=== PATIENT | male | born 1950 | race Caucasian/White ===

== ENCOUNTER 2018-05-19 13:27 | Observation (INO) ==
--- NOTE | 2018-05-19 13:39 | Emergency Department Note ---
Disposition Clinical Impression: Elevated troponin, Dyspnea on exertion Disposition: Admitted As Inpatient Condition: Fair Referrals: Kacey Walker MD [Non-Partnered Physician] - Forms: ED Satisfaction Letter Time of Disposition: 15:41 General Adult HPI - General Chief complaint: ED Shortness of Breath/Dyspnea Stated complaint: Dizzy/SOB Time Seen by Provider: 05/19/18 13:37 Source: patient Mode of arrival: ambulatory Nursing Notes Reviewed: Yes Vital Signs Reviewed: Yes - History of Present Illness HPI Narrative: 68 yo male with past medical history of anemia requiring blood transfusions, mechanical heart valve on Coumadin, and hypertension presents to the emergency department with shortness of breath with exertion over the past 3 days and lightheadedness that started today. He states he has had something like this back in January and was found to have bleeding ulcers in his stomach. Dr. Perdue did his endoscopy. He states that he needed blood transfusions at this time and had a scope to take care of the ulcers. He is still taking his Coumadin and labetalol has not noticed dark tarry stools. He states he has not had a bowel movement since Thursday his last bowel movement was normal. He has not been vomiting that he feels nauseous. Denies fever, chills, chest pain, abdominal pain. He states he has some right leg pain with walking but not at rest and he has not noticed any leg swelling. Pain Scale: 0 - Related Data Home Medications Medication Instructions Recorded Confirmed Finasteride [Proscar] 5 mg PO DAILY 01/12/18 01/12/18 Simvastatin [Zocor] 40 mg PO HS 01/12/18 01/12/18 Tamsulosin HCl [Flomax] 0.8 mg PO DAILY 01/12/18 01/12/18 hydroCHLOROthiazide 25 mg PO DAILY 01/12/18 01/12/18 [Hydrochlorothiazide] Previous Rx's Medication Instructions Recorded Lisinopril [Zestril] 5 mg PO DAILY #30 tablet 01/23/18 Loratadine [Claritin] 10 mg PO DAILY #30 tablet 01/23/18 Omeprazole [PriLOSEC] 20 mg PO BIDAC #60 capsule. 01/23/18 Warfarin Sodium [Coumadin] 6 mg PO DAILY #10 tablet 01/23/18 Allergies Allergy/AdvReac Type Severity Reaction Status Date / Time No Known Allergies Allergy Verified 09/10/18 22:34 All systems ED: reviewed and negative except as stated. Review of Systems: As Per HPI Constitutional: Reports: weakness. Denies: fever, chills Cardiovascular: Reports: dyspnea on exertion. Denies: chest pain, palpitations Respiratory: Reports: dyspnea. Denies: cough Gastrointestinal: Denies: abdominal pain, nausea, vomiting, diarrhea Genitourinary: Denies: hematuria Neurological: Denies: headache Past Medical History - Past Medical History Medical history: Reports: COPD, hyperlipidemia, hypertension Surgical history: Reports: heart valve replacement (mechanical aortic valve) Psychiatric history: Reports: no psych history - Social History Smoking Status: Current every day smoker Alcohol use: Reports: none Drug use: Reports: none Physical Exam - General Limitations: no limitations General appearance: alert, in no apparent distress - Head Head exam: atraumatic, normocephalic - Eye Eye exam: Present: normal appearance, PERRL, EOMI - ENT ENT exam: normal exam, mucous membranes moist - Neck Neck exam: Present: normal inspection. Absent: lymphadenopathy - Respiratory Respiratory exam: Present: other (Diminished breath sounds bilaterally). Absent: wheezes - Cardiovascular Cardiovascular exam: Present: regular rate, normal rhythm, systolic murmur - Abdominal Exam Abdominal exam: Present: soft, Non-Tender. Absent: distention, guarding, rebound, rigidity - Extremities Exam Extremities exam: Present: normal inspection, other (Alison's sign negative bilaterally). Absent: tenderness, pedal edema, calf tenderness - Neurological Exam Neurological exam: Present: alert, oriented X3 - Psychiatric Psychiatric exam: Present: normal affect, normal mood - Skin Skin exam: Present: warm, dry, intact Course Vital Signs Temperature 98.5 F 05/19/18 13:30 Pulse Rate 84 05/19/18 13:30 Respiratory Rate 16 05/19/18 13:30 Blood Pressure 124/75 05/19/18 13:30 O2 Sat by Pulse Oximetry 99 05/19/18 13:30 Temperature 98.5 F 05/19/18 13:40 Pulse Rate 84 05/19/18 13:40 Respiratory Rate 16 05/19/18 13:40 Blood Pressure 124/75 05/19/18 13:40 O2 Sat by Pulse Oximetry 99 05/19/18 13:40 Oxygen Delivery Oxygen Delivery Room Air Medical Decision Making - MDM Narrative Medical decision making narrative: This patient presents with dyspnea on exertion for the past 3 days and lightheadedness starting today. We will pursue a cardiac workup on this patient as he has had no infectious symptoms suggestive of pneumonia. We will also determine if patient has recurrent anemia. We will obtain EKG, CBC, BMP, troponin, PT/INR, chest x-ray. 1455 - patient's chest x-ray shows no acute cardiopulmonary process. Hemoglobin and hematocrit are 10/34.1. A critical troponin of 0.05 was reported from lab. 1515 - patient's INR returned at 3.8. He was told for the need for admission for observation and further cardiac workup and he was reluctant to be admitted at first but now agrees. Hospitalist has been paged for admission. 6110 - Dr. Tee has accepted this patient for admission. ASA will also be given to do the patient's elevated troponin. - Medical Records Medical records reviewed: Yes I reviewed the patient's medical records. - Lab Data Lab results reviewed: Yes I reviewed the patient's lab results. Result diagrams: 05/19/18 14:15 05/19/18 14:15 Lab Results 05/19/18 05/19/18 05/19/18 Range/Units 14:15 14:15 14:15 WBC 9.6 (4.3-11.1) K/mcL RBC 4.81 (4.19-5.50) M/mcL Hgb 10.0 L (12.9-16.9) g/dL Hct 34.1 L (37.5-50.1) % MCV 70.9 L (83.0-100.0) fL MCH 20.8 L (28.0-33.3) pg MCHC 29.3 L (31.6-35.5) g/dL RDW 21.3 H (11.5-14.5) % Plt Count 322 (140-400) K/mcL MPV 10.3 (9.4-12.4) fL Immature Gran % 0.4 (0-4) % Seg Neutrophils % 80.2 % Lymphocytes % 10.9 % Monocytes % 6.4 % Eosinophils % 1.5 % Basophils % 0.6 % Neutrophils # 7.7 (1.6-8.9) K/mcL Lymphocytes # 1.1 (0.6-4.6) K/mcL Monocytes # 0.6 (0.0-1.3) K/mcL Eosinophils # 0.1 (0.0-0.6) K/mcL Basophils # 0.1 (0.0-0.2) K/mcL Sodium 137 (136-145) mEq/L Potassium 4.3 (3.5-5.1) mEq/L Chloride 102 (98-107) mEq/L Carbon Dioxide 29 (23-29) mEq/L BUN 22 (8-23) mg/dL Creatinine 1.41 H (0.70-1.30) mg/dL Est GFR ( Amer) > 60 (> 60) Est GFR (Non-Af Amer) 50 L (> 60) BUN/Creatinine Ratio 16 (6-26) Glucose 110 H (70-105) mg/dL Calculated Osmolality 288 (280-300) Calcium 9.4 (8.6-10.3) mg/dL Troponin I 0.05 H* (< 0.04) ng/mL Blood Type B NEGATIVE - Radiology Data Radiology results reviewed: Yes I reviewed the patient's radiology results. - EKG Data EKG #1 EKG attestation: Yes I reviewed and interpreted this EKG. EKG results narrative: EKG obtained at 13:39 on 05/19/2018 Heart rate 75 bpm, IL interval undetermined, QRS duration 121, QTC 434, QTC 485 Atrial flutter with a 4-1 AV block. Right bundle branch block noted. No signs of ST segment elevations or depressions. Unchanged when compared to his previous EKG dated 01/11/2018.
[2018-05-19 14:39] LABS: Basophils # 0.1 K/mcL (0.0-0.2); Basophils % 0.6 %; Eosinophils # 0.1 K/mcL (0.0-0.6); Eosinophils % 1.5 %; Hematocrit 34.1 % (37.5-50.1); Immature Granulocytes % 0.4 % (0-4); Lymphocytes # 1.1 K/mcL (0.6-4.6); Lymphocytes % 10.9 %; Mean Corpuscular HGB Conc 29.3 g/dL (31.6-35.5); Mean Corpuscular Hemoglobin 20.8 pg (28.0-33.3); Mean Corpuscular Volume 70.9 fL (83.0-100.0); Mean Platelet Volume 10.3 fL (9.4-12.4); Monocytes # 0.6 K/mcL (0.0-1.3); Monocytes % 6.4 %; Neutrophils # 7.7 K/mcL (1.6-8.9); Platelet Count 322 K/mcL (140-400); Red Blood Count 4.81 M/mcL (4.19-5.50); Red Cell Distribution Width 21.3 % (11.5-14.5); Segmented Neutrophils % 80.2 %
--- NOTE | 2018-05-19 14:43 | Emergency Department Note ---
Disposition Clinical Impression: Elevated troponin, Shortness of breath Disposition: Admitted As Inpatient Condition: Good Referrals: Kacey Walker MD [Primary Care Provider] - Forms: ED Satisfaction Letter General Adult HPI - General Chief complaint: ED Shortness of Breath/Dyspnea Stated complaint: Dizzy/SOB Time Seen by Provider: 05/19/18 13:37 Source: patient Mode of arrival: ambulatory Limitations: no limitations - History of Present Illness Pain Scale: 0 - Related Data Home Medications Medication Instructions Recorded Confirmed Finasteride [Proscar] 5 mg PO DAILY 01/12/18 01/12/18 Simvastatin [Zocor] 40 mg PO HS 01/12/18 01/12/18 Tamsulosin HCl [Flomax] 0.8 mg PO DAILY 01/12/18 01/12/18 hydroCHLOROthiazide 25 mg PO DAILY 01/12/18 01/12/18 [Hydrochlorothiazide] Previous Rx's Medication Instructions Recorded Lisinopril [Zestril] 5 mg PO DAILY #30 tablet 01/23/18 Loratadine [Claritin] 10 mg PO DAILY #30 tablet 01/23/18 Omeprazole [PriLOSEC] 20 mg PO BIDAC #60 capsule. 01/23/18 Warfarin Sodium [Coumadin] 6 mg PO DAILY #10 tablet 01/23/18 Allergies Allergy/AdvReac Type Severity Reaction Status Date / Time No Known Allergies Allergy Verified 01/11/18 22:34 Constitutional: Reports: weakness. Denies: fever, chills Cardiovascular: Reports: dyspnea on exertion. Denies: chest pain, palpitations Respiratory: Reports: dyspnea. Denies: cough Gastrointestinal: Denies: abdominal pain, nausea, vomiting, diarrhea Genitourinary: Denies: hematuria Neurological: Denies: headache Past Medical History - Past Medical History Medical history: Reports: COPD, hyperlipidemia, hypertension Surgical history: Reports: heart valve replacement (mechanical aortic valve) Psychiatric history: Reports: no psych history - Social History Smoking Status: Current every day smoker Smokeless Tobacco Status: No Alcohol use: Reports: none Drug use: Reports: none Physical Exam - General Limitations: no limitations General appearance: alert, in no apparent distress Course Vital Signs Temperature 98.5 F 05/19/18 13:30 Pulse Rate 84 05/19/18 13:30 Respiratory Rate 16 05/19/18 13:30 Blood Pressure 124/75 05/19/18 13:30 O2 Sat by Pulse Oximetry 99 05/19/18 13:30 Temperature 98.5 F 05/19/18 13:40 Pulse Rate 84 05/19/18 13:40 Respiratory Rate 16 05/19/18 13:40 Blood Pressure 124/75 05/19/18 13:40 O2 Sat by Pulse Oximetry 99 05/19/18 13:40 Oxygen Delivery Oxygen Delivery Room Air Medical Decision Making - MDM Narrative Medical decision making narrative: Slightly elevated troponin 0.05. Aspirin given. Admit for ACS evaluation and observation. Patient's EKG shows evidence of chronic a flutter. - Medical Records Medical records reviewed: Yes I reviewed the patient's medical records. - Lab Data Lab results reviewed: Yes I reviewed the patient's lab results. Result diagrams: 05/19/18 14:15 05/19/18 14:15 Lab Results 05/19/18 05/19/18 05/19/18 Range/Units 14:15 14:15 14:15 WBC 9.6 (4.3-11.1) K/mcL RBC 4.81 (4.19-5.50) M/mcL Hgb 10.0 L (12.9-16.9) g/dL Hct 34.1 L (37.5-50.1) % MCV 70.9 L (83.0-100.0) fL MCH 20.8 L (28.0-33.3) pg MCHC 29.3 L (31.6-35.5) g/dL RDW 21.3 H (11.5-14.5) % Plt Count 322 (140-400) K/mcL MPV 10.3 (9.4-12.4) fL Immature Gran % 0.4 (0-4) % Seg Neutrophils % 80.2 % Lymphocytes % 10.9 % Monocytes % 6.4 % Eosinophils % 1.5 % Basophils % 0.6 % Neutrophils # 7.7 (1.6-8.9) K/mcL Lymphocytes # 1.1 (0.6-4.6) K/mcL Monocytes # 0.6 (0.0-1.3) K/mcL Eosinophils # 0.1 (0.0-0.6) K/mcL Basophils # 0.1 (0.0-0.2) K/mcL PT 42.7 H (9.4-12.1) Seconds INR 3.8 Sodium 137 (136-145) mEq/L Potassium 4.3 (3.5-5.1) mEq/L Chloride 102 (98-107) mEq/L Carbon Dioxide 29 (23-29) mEq/L BUN 22 (8-23) mg/dL Creatinine 1.41 H (0.70-1.30) mg/dL Est GFR ( Amer) > 60 (> 60) Est GFR (Non-Af Amer) 50 L (> 60) BUN/Creatinine Ratio 16 (6-26) Glucose 110 H (70-105) mg/dL Calculated Osmolality 288 (280-300) Calcium 9.4 (8.6-10.3) mg/dL Troponin I 0.05 H* (< 0.04) ng/mL Blood Type Antibody Screen 05/19/18 Range/Units 14:15 WBC (4.3-11.1) K/mcL RBC (4.19-5.50) M/mcL Hgb (12.9-16.9) g/dL Hct (37.5-50.1) % MCV (83.0-100.0) fL MCH (28.0-33.3) pg MCHC (31.6-35.5) g/dL RDW (11.5-14.5) % Plt Count (140-400) K/mcL MPV (9.4-12.4) fL Immature Gran % (0-4) % Seg Neutrophils % % Lymphocytes % % Monocytes % % Eosinophils % % Basophils % % Neutrophils # (1.6-8.9) K/mcL Lymphocytes # (0.6-4.6) K/mcL Monocytes # (0.0-1.3) K/mcL Eosinophils # (0.0-0.6) K/mcL Basophils # (0.0-0.2) K/mcL PT (9.4-12.1) Seconds INR Sodium (136-145) mEq/L Potassium (3.5-5.1) mEq/L Chloride (98-107) mEq/L Carbon Dioxide (23-29) mEq/L BUN (8-23) mg/dL Creatinine (0.70-1.30) mg/dL Est GFR ( Amer) (> 60) Est GFR (Non-Af Amer) (> 60) BUN/Creatinine Ratio (6-26) Glucose (70-105) mg/dL Calculated Osmolality (280-300) Calcium (8.6-10.3) mg/dL Troponin I (< 0.04) ng/mL Blood Type B NEGATIVE Antibody Screen NEGATIVE - Radiology Data Radiology results reviewed: Yes I reviewed the patient's radiology results. Critical Care Time Critical Care Time: No Attestation Statement - Attestation Attestation: I examined this patient and my medical decision-making was reviewed with the Resident Physician. I agree with the documented findings, disposition and treatment plan as described except to the extent set forth below. 68-year-old male presented to the emergency room for dizziness lightheadedness and shortness of breath 3 days. States the last time he had this he had a blee ding gastric ulcer that required an EGD that the surgeon had to repair. He is currently on Coumadin as well as blood pressure medications. He does have a history of a mechanical heart valve. He also has a underlying history of a flutter. We will check screening lab work and cardiac labs. He denies any blood in his stool. Denies any dark tarry stools. No vomiting today. No fevers.
[2018-05-19 14:51] LABS: BUN/Creatinine Ratio 16 (6-26); Blood Urea Nitrogen 22 mg/dL (8-23); Calcium 9.4 mg/dL (8.6-10.3); Carbon Dioxide 29 mEq/L (23-29); Chloride 102 mEq/L (98-107); Glucose 110 mg/dL (70-105); Osmolality,Calculated 288 (280-300); Potassium 4.3 mEq/L (3.5-5.1); Sodium 137 mEq/L (136-145); eGFR For Non-African Americans 50 (> 60)
[2018-05-19 14:52] LABS: INR 3.8; Prothrombin Time 42.7 Seconds (9.4-12.1)
[2018-05-19 14:53] LABS: Troponin I 0.05 ng/mL (< 0.04)
[2018-05-19] MEDS ORDERED: Aspirin 81 MG TAB.CHEW PO ONE (15:12)
[2018-05-19] MEDS ORDERED: Ondansetron 4 MG/2 ML VIAL IVP PRN (15:43)
[2018-05-19] MEDS ORDERED: Naloxone 0.4 MG/ML INJ IVP PRN (15:43)
[2018-05-19] MEDS ORDERED: *HR* HYDROcodone/Acet 5/325 mg TABLET PO PRN (15:43)
[2018-05-19] MEDS ORDERED: Acetaminophen 325 MG TABLET PO PRN (15:43)
[2018-05-19] MEDS ORDERED: Nitroglycerin 0.4 MG TAB.SUBL SL PRN (15:47)
--- NOTE | 2018-05-19 17:04 | Internal Med History&Physical ---
Date of Encounter: 05/19/18 Time of Encounter: 16:59 Internal Medicine - H&P: HPI Chief complaint: Shortness of breath Admitted From: Emergency Dept Plans for Post Hospital Care: Home History of present illness: Mr. Loco is a 68 year old male with a known past medical history of BPH, hypertension, status post mechanical aortic valve replacement who is currently on Coumadin for anticoagulation and chronic tobacco dependence patient presented to ER with shortness of breath, dyspnea and lightheadedness from last 3 days. He denied any active chest pain. Patient had a further work up done in the emergency room. His troponin slightly elevated at 0.05. His EKG did not show any acute ischemic changes. When I examined the patient on the floor he denied any chest pain whatsoever. His shortness of breath also better now. He does have some cough without any expectoration. He does have orthopnea and dyspnea on exertion. Past Med Surg Social Fam HX - Past Medical History Medical history: COPD, hyperlipidemia, hypertension Additional medical history: prior h/o LGI bleed Psychiatric history: no psych history - Past Surgical History Surgical History: heart valve replacement (mechanical aortic valve) Additional surgical history: recent colonsocopy with polypectomy ~ 6 months ago - Social History Smoking Status: Current every day smoker Smokeless Tobacco Status: No Alcohol use: none Drug use: none - Family History Mother Living Status: Hx Family GI Disorders: No Father Living Status: Hx Family GI Disorders: No Internal Medicine - H&P: Meds Finasteride [Proscar] 5 mg PO DAILY 01/12/18 [History] Simvastatin [Zocor] 40 mg PO HS 01/12/18 [History] Tamsulosin HCl [Flomax] 0.8 mg PO DAILY 01/12/18 [History] hydroCHLOROthiazide [Hydrochlorothiazide] 25 mg PO DAILY 01/12/18 [History] Lisinopril [Zestril] 5 mg PO DAILY #30 tablet 01/23/18 [Rx] Loratadine [Claritin] 10 mg PO DAILY #30 tablet 01/23/18 [Rx] Omeprazole [PriLOSEC] 20 mg PO BIDAC #60 capsule. 01/23/18 [Rx] Warfarin Sodium [Coumadin] 6 mg PO DAILY #10 tablet 01/23/18 [Rx] Allergy/AdvReac Type Severity Reaction Status Date / Time No Known Allergies Allergy Verified 01/11/18 22:34 All Systems PM: A 10-system review of systems was performed and is negative for pertinent findings except as documented above in the HPI. Review of systems: All the systems are reviewed everything is benign except the systems and symptoms I mentioned in the history of present illness - Constitutional Vitals: Temp Pulse Resp BP Pulse Ox 98.5 F 69 18 105/83 97 05/19/18 13:40 05/19/18 16:04 05/19/18 16:04 05/19/18 16:04 05/19/18 16:04 General appearance: Present: cooperative, A&O X 3, no acute distress, answers questions appropriately Exam: See below - Head Head exam: Present: atraumatic, normal inspection - Neck Neck exam general surgery: Present: supple - Respiratory Respiratory exam: Present: decreased breath sounds. Absent: rales, respiratory distress, rhonchi, wheezes - Cardiovascular Cardiovascular exam: Present: +S1, +S2, systolic murmur. Absent: tachycardia - GI/Abdominal GI/Abdominal exam: Present: normal bowel sounds, soft. Absent: rebound, rigid, tenderness - Extremities Exam Extremities exam: Present: pedal edema (Trace). Absent: calf tenderness, tenderness - Back Exam Back exam: Absent: CVA tenderness (L), CVA tenderness (R) - Neurological Exam Neurological exam: Present: alert, oriented X3 - Psychiatric Psychiatric exam: Present: normal affect, normal mood - Skin Skin exam: Absent: rash Internal Med - H&P Results - Labs CBC & Chem 7: 05/19/18 14:15 05/19/18 14:15 Labs: Short CBC 05/19/18 Range/Units 14:15 WBC 9.6 (4.3-11.1) K/mcL Hgb 10.0 L (12.9-16.9) g/dL Hct 34.1 L (37.5-50.1) % Plt Count 322 (140-400) K/mcL Neutrophils # 7.7 (1.6-8.9) K/mcL BMP 05/19/18 14:15 Sodium 137 Potassium 4.3 Chloride 102 Carbon Dioxide 29 BUN 22 Creatinine 1.41 H Glucose 110 H Calcium 9.4 Cardiac Enzymes 05/19/18 Range/Units 14:15 Troponin I 0.05 H* (< 0.04) ng/mL - Impressions ITS Impressions Chest X-Ray 05/19/18 13:48 IMPRESSION: No acute cardiopulmonary process. D/ / 05/19/2018 14:04:52 Aftab Kramer MD / julius Interpreting Provider: Aftab Kramer MD - Assessment and plan (1) Dyspnea on exertion Current Visit: Yes Status: Acute Assessment and plan: Place the patient on tele for observation his dyspnea on exertion seems to be multifactorial with possible CHF exacerbation versus mild COPD reviewed her chest x-ray- no vascular congestion, no pleural effusion noticed.. No infiltrates noticed reviewed his EKG showed HR @ 75, No acute ST T changes initial troponin @ 0.05 will trend on trop check 2 D Echo in AM NPO after mid night if he needs any further cardiac testing in AM ASA, Nitro PRN He does look euvolemic May not need any diuretics at this point started Duoneb therapy (2) Elevated troponin Current Visit: Yes Status: Acute (3) H/O mechanical aortic valve replacement Current Visit: No Status: Chronic Assessment and plan: Continue Coumadin INR at therapeutic range (4) HTN (hypertension) Current Visit: No Status: Chronic Assessment and plan: Will resume all home medications Qualifiers: Hypertension type: essential hypertension Qualified Code(s): I10 - Essential (primary) hypertension (5) CKD (chronic kidney disease) stage 3, GFR 30-59 ml/min Current Visit: Yes Status: Acute Assessment and plan: Cr @ 1.4 seems to be at his baseline he does have CKD-3 (6) Tobacco dependence Current Visit: Yes Status: Acute Assessment and plan: Counseled to quit smoking offered nicotine patch - Time Spent With Patient Total time spent is greater than 50% in coordination of care (as documented) at patient's floor/unit and/or counseling patient:
[2018-05-19] MEDS ORDERED: Ipratropium/Albuterol Neb 3 ML IH PRN (17:11)
[2018-05-19] MEDS ORDERED: Warfarin perPT PO PRN (18:00)
[2018-05-19] MEDS ORDERED: Perflutren Lipid Microsphere 1.3 ML in 0.9 % Sodium Chloride 8.7 ML IVP ONE (20:45)
[2018-05-20 05:08] LABS: Hematocrit 30.7 % (37.5-50.1); Mean Corpuscular HGB Conc 29.3 g/dL (31.6-35.5); Mean Corpuscular Hemoglobin 20.9 pg (28.0-33.3); Mean Corpuscular Volume 71.2 fL (83.0-100.0); Mean Platelet Volume 9.8 fL (9.4-12.4); Platelet Count 267 K/mcL (140-400); Red Blood Count 4.31 M/mcL (4.19-5.50); Red Cell Distribution Width 21.3 % (11.5-14.5)
[2018-05-20 05:17] LABS: INR 3.6; Prothrombin Time 40.4 Seconds (9.4-12.1)
[2018-05-20 05:31] LABS: BUN/Creatinine Ratio 16 (6-26); Blood Urea Nitrogen 20 mg/dL (8-23); Carbon Dioxide 29 mEq/L (23-29); Chloride 105 mEq/L (98-107); Chol/HDL Ratio 3.8 (0-4.9); Cholesterol 146 mg/dL (< 200); Glucose 105 mg/dL (70-105); HDL Cholesterol 38 mg/dL (40-59); LDL Cholesterol,Calculated 76 mg/dL (0-99); Magnesium 1.9 mg/dL (1.6-2.6); Osmolality,Calculated 291 (280-300); Potassium 4.2 mEq/L (3.5-5.1); Sodium 139 mEq/L (136-145); Triglycerides 158 mg/dL (< 150); eGFR For Non-African Americans 56 (> 60)
[2018-05-20] MEDS ORDERED: Aspirin Enteric Coated 81 MG Tablet PO SCH (09:00)
--- NOTE | 2018-05-20 09:18 | Electrocardiograph Report ---
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
[2018-05-20] MEDS ORDERED: Furosemide 20 MG/2 ML VIAL IVP ONE (10:45)
--- NOTE | 2018-05-20 12:47 | Electrocardiograph Report ---
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
[2018-05-20 13:12] VITALS: BP 155/99
--- NOTE | 2018-05-20 13:15 | Discharge Summary ---
- NOTES TO OUTPATIENT PROVIDER Notes to Outpatient Provider: Follow with PCP in one week. Follow-up with cardiology and pulmonary in 2 weeks. Please take Lasix isntead of HCTZ for your LE edema and shortness of breath. Orders not resulted at time of discharge: Pending orders 05/21/18 04:00 Prothrombin Time INR [COAG] AM 0400 05/22/18 04:00 Prothrombin Time INR [COAG] AM 0400 Date of Encounter: 05/20/18 Time of Encounter: 13:15 - Discharge Diagnosis (1) Dyspnea on exertion Priority: Primary Status: Acute (2) Acute diastolic CHF (congestive heart failure) Priority: Secondary Status: Acute (3) Elevated troponin Priority: Primary Status: Acute (4) H/O mechanical aortic valve replacement Priority: Secondary Status: Chronic (5) HTN (hypertension) Priority: Secondary Status: Chronic Qualifiers: Hypertension type: essential hypertension Qualified Code(s): I10 - Essential (primary) hypertension (6) CKD (chronic kidney disease) stage 3, GFR 30-59 ml/min Priority: Secondary Status: Acute (7) Tobacco dependence Priority: Secondary Status: Acute (8) Atrial flutter Priority: Secondary Status: Chronic Qualifiers: Atrial flutter type: typical Qualified Code(s): I48.3 - Typical atrial flutter Hospital course: Mr. Loco is a 68 year old male with a known past medical history of BPH, hypertension, status post mechanical aortic valve replacement who is currently on Coumadin for anticoagulation and chronic tobacco dependence patient presented to ER with shortness of breath, dyspnea and lightheadedness from last 3 days. He denied any active chest pain. Patient had a further work up done in the emergency room. His troponin slightly elevated at 0.05. His EKG did not show any acute ischemic changes. Patient was admitted in the hospital and placed on surveillance system monitor. Checked his serial troponin which were slightly elevated at 0.05 and a dynamic. He denied any active chest pain. His symptoms seems to be due to mild acute diastolic CHF exacerbation. His 2 D Echo showed preserved LVEF and mild diastolic dysfunction. So gave him IV Lasix and recommend to use Lasix PO at home. It seems he does have mild COPD too. Recommend to quit smoking and placed him on Albuterol INH. Also suggested to f/u with Pulmonary as an out pt. - Time Spent with Patient Total time spent providing and/or coordinating discharge services: - Discharge Medications Prescriptions: Albuterol Sulfate [Proair Respiclick] 90 mcg IH Q6H PRN #1 aer.[email or web address] PRN Reason: Shortness Of Breath Furosemide [Lasix] 20 mg PO DAILY PRN #30 tablet PRN Reason: Shortness Of Breath Home Medications: Finasteride [Proscar] 5 mg PO DAILY 01/12/18 [History] Simvastatin [Zocor] 40 mg PO HS 01/12/18 [History] Tamsulosin HCl [Flomax] 0.4 mg PO DAILY 01/12/18 [History] Lisinopril [Zestril] 5 mg PO DAILY #30 tablet 01/23/18 [Rx] Warfarin Sodium [Coumadin] 6 mg PO DAILY #10 tablet 01/23/18 [Rx] Aspirin [Lo-Dose Aspirin EC] 81 mg PO DAILY 05/19/18 [History] Esomeprazole Magnesium [Nexium] 40 mg PO DAILY 05/19/18 [History] Multivitamin [Daily Multiple Vitamin] 1 tab PO DAILY 05/19/18 [History] [place]-3/Dha/Epa/Fish Oil [Fish Oil 1,000 mg Softgel] 1 cap PO DAILY 05/19/18 [History] Albuterol Sulfate [Proair Respiclick] 90 mcg IH Q6H PRN #1 aer.pow.ba 05/20/18 [Rx] Furosemide [Lasix] 20 mg PO DAILY #30 tablet 05/20/18 [Rx] Allergies/Adverse Reactions: Allergy/AdvReac Type Severity Reaction Status Date / Time No Known Allergies Allergy Verified 05/19/18 17:52 Date of admission: 05/19/18 15:54 Primary care physician: Kacey Walker MD Consults: 05/20/18 09:58 Consult to Nurse Navigator [CONS] Routine Comment: COPD/CHF - Constitutional Vitals: Temp Pulse Resp BP Pulse Ox 97.7 F 77 17 155/99 96 05/20/18 13:11 05/20/18 13:11 05/20/18 13:11 05/20/18 13:11 05/20/18 13:11 General appearance: Present: cooperative, A&O X 3, no acute distress, answers questions appropriately Exam: Gen: Alert, awake, Oriented to time,place and person Chest: Diminished breath sounds B/L, No wheezing, No crackles, No rales Heart: S1S2+ RRR No murmurs Abd: Soft, NT, BS +, No organomegaly Ext: No edema, pulses are palpable, No calf tenderness Neuro : Benign findings Skin: No rash. - Patient Status Disposition: Home, Self-Care Condition: Good Overall status at discharge: patient is back to baseline - Discharge Instructions Follow Up With: Aftab Roy MD [Partnered Physician] - 06/21/18 9:30 am Constance Carrillo MD [Partnered Physician] - (Your appointment has been requested. Our offices will call you with an appointment time and date.) Kacey Walker MD [Primary Care Provider] - 06/01/18 2:40 pm - Diet and Activity Activity: increase activity as tolerated Diet: low salt diet
--- NOTE | 2018-05-20 15:35 | Electrocardiograph Report ---
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
== END 2018-05-20 14:42 | disposition home or self-care (01) ==
LOC: 3BNU 13:27 → EMEROOARM 13:27 → 3BNU 16:38
PROVIDERS: ADMIT Hospitalist; ATTEND Hospitalist

== ENCOUNTER 2019-04-09 16:34 | Inpatient (IN) ==
[2019-04-09] MEDS ORDERED: Pantoprazole 40 MG VIAL IVP ONE (16:44)
[2019-04-09] MEDS ORDERED: 0.9 % Sodium Chloride 1,000 ML IVC ONE (16:44)
[2019-04-09 17:03] LABS: Basophils # 0.1 K/mcL (0.0-0.2); Basophils % 0.4 %; Eosinophils # 0.2 K/mcL (0.0-0.6); Eosinophils % 1.5 %; Hematocrit 21.5 % (37.5-50.1); Hemoglobin 7.2 g/dL (12.9-16.9); Immature Granulocytes % 1.2 % (0-4); Lymphocytes # 1.8 K/mcL (0.6-4.6); Mean Corpuscular HGB Conc 33.5 g/dL (31.6-35.5); Mean Corpuscular Hemoglobin 29.8 pg (28.0-33.3); Mean Corpuscular Volume 88.8 fL (83.0-100.0); Mean Platelet Volume 10.8 fL (9.4-12.4); Monocytes # 0.9 K/mcL (0.0-1.3); Monocytes % 6.7 %; Neutrophils # 10.5 K/mcL (1.6-8.9); Nucleated Red Blood Cells 0.1 /100 WBC (0); Platelet Count 322 K/mcL (140-400); Red Blood Count 2.42 M/mcL (4.19-5.50); Red Cell Distribution Width 14.3 % (11.5-14.5); Segmented Neutrophils % 77.2 %; White Blood Count 13.6 K/mcL (4.3-11.1)
[2019-04-09 17:09] LABS: INR 3.6; Prothrombin Time 40.5 Seconds (9.4-12.1)
[2019-04-09 17:21] LABS: Alanine Aminotransferase 10 Units/L (7-52); Albumin 3.4 g/dL (3.5-5.7); Albumin/Globulin Ratio 1.2 (1.1-2.2); Alkaline Phosphatase 54 Units/L (34-104); Aspartate Amino Transferase 15 Units/L (13-39); BUN/Creatinine Ratio 41 (6-26); Bilirubin,Total 0.4 mg/dL (0.3-1.0); Blood Urea Nitrogen 47 mg/dL (8-23); Calcium 8.9 mg/dL (8.6-10.3); Carbon Dioxide 27 mEq/L (23-29); Chloride 102 mEq/L (98-107); Globulin 2.9 g/dL (2.4-3.5); Glucose 148 mg/dL (70-105); Osmolality,Calculated 299 (280-300); Potassium 3.8 mEq/L (3.5-5.1); Sodium 137 mEq/L (136-145); Total Protein 6.3 g/dL (6.4-8.9); eGFR For African Americans > 60 (> 60); eGFR For Non-African Americans > 60 (> 60)
[2019-04-09] MEDS ORDERED: 0.9 % Sodium Chloride 250 ML ONE (17:55)
[2019-04-09] MEDS ORDERED: Ondansetron 4 MG/2 ML VIAL IVP PRN (18:07)
[2019-04-09] MEDS ORDERED: Naloxone 0.4 MG/ML INJ IVP PRN (18:07)
[2019-04-09] MEDS: 0.9 % Sodium Chloride 1,000 ML IVC SCH (19:10)
[2019-04-09 23:27] LABS: Hematocrit 19.7 % (37.5-50.1); Hemoglobin 6.2 g/dL (12.9-16.9)
[2019-04-10 00:50] LABS: Hematocrit 18.6 % (37.5-50.1); Mean Corpuscular HGB Conc 32.3 g/dL (31.6-35.5); Mean Corpuscular Hemoglobin 28.6 pg (28.0-33.3); Mean Corpuscular Volume 88.6 fL (83.0-100.0); Mean Platelet Volume 10.3 fL (9.4-12.4); Platelet Count 201 K/mcL (140-400); Red Cell Distribution Width 14.3 % (11.5-14.5); White Blood Count 10.9 K/mcL (4.3-11.1)
[2019-04-10 00:51] LABS: Basophils % 0.3 %; Eosinophils # 0.2 K/mcL (0.0-0.6); Eosinophils % 1.4 %; Hematocrit 18.7 % (37.5-50.1); Hemoglobin 6.1 g/dL (12.9-16.9); Immature Granulocytes % 1.1 % (0-4); Lymphocytes # 1.7 K/mcL (0.6-4.6); Lymphocytes % 15.9 %; Mean Corpuscular HGB Conc 32.6 g/dL (31.6-35.5); Mean Corpuscular Hemoglobin 28.9 pg (28.0-33.3); Mean Corpuscular Volume 88.6 fL (83.0-100.0); Mean Platelet Volume 10.4 fL (9.4-12.4); Monocytes # 0.7 K/mcL (0.0-1.3); Monocytes % 6.8 %; Nucleated Red Blood Cells 0.2 /100 WBC (0); Platelet Count 206 K/mcL (140-400); Red Blood Count 2.11 M/mcL (4.19-5.50); Red Cell Distribution Width 14.2 % (11.5-14.5); Segmented Neutrophils % 74.5 %; White Blood Count 10.7 K/mcL (4.3-11.1)
[2019-04-10] MEDS ORDERED: 0.9 % Sodium Chloride 250 ML ONE ×2 (00:58→08:02)
[2019-04-10 01:08] LABS: INR 2.4; Prothrombin Time 26.8 Seconds (9.4-12.1)
[2019-04-10 01:09] LABS: BUN/Creatinine Ratio 46 (6-26); Blood Urea Nitrogen 44 mg/dL (8-23); Calcium 7.8 mg/dL (8.6-10.3); Carbon Dioxide 25 mEq/L (23-29); Chloride 106 mEq/L (98-107); Glucose 106 mg/dL (70-105); Osmolality,Calculated 296 (280-300); Potassium 3.6 mEq/L (3.5-5.1); Sodium 137 mEq/L (136-145); eGFR For African Americans > 60 (> 60); eGFR For Non-African Americans > 60 (> 60)
[2019-04-10] MEDS: 0.9 % Sodium Chloride 1,000 ML IVC SCH (01:23)
[2019-04-10 07:00] LABS: Hematocrit 21.7 % (37.5-50.1)
[2019-04-10] MEDS: Finasteride 5 MG TABLET PO SCH (08:05)
[2019-04-10] MEDS: Pantoprazole 40 MG VIAL IVP SCH (08:05)
[2019-04-10 17:00] LABS: Hematocrit 25.6 % (37.5-50.1); Hemoglobin 8.5 g/dL (12.9-16.9)
[2019-04-10 17:06] LABS: INR 1.3; Prothrombin Time 15.2 Seconds (9.4-12.1)
[2019-04-10 23:17] LABS: Hematocrit 24.7 % (37.5-50.1); Hemoglobin 8.5 g/dL (12.9-16.9)
[2019-04-11 06:32] LABS: Basophils # 0.1 K/mcL (0.0-0.2); Basophils % 0.7 %; Eosinophils # 0.3 K/mcL (0.0-0.6); Hematocrit 23.8 % (37.5-50.1); Hemoglobin 7.7 g/dL (12.9-16.9); Immature Granulocytes % 0.7 % (0-4); Lymphocytes # 1.6 K/mcL (0.6-4.6); Lymphocytes % 22.5 %; Mean Corpuscular HGB Conc 32.4 g/dL (31.6-35.5); Mean Corpuscular Hemoglobin 29.5 pg (28.0-33.3); Mean Corpuscular Volume 91.2 fL (83.0-100.0); Mean Platelet Volume 10.8 fL (9.4-12.4); Monocytes # 0.5 K/mcL (0.0-1.3); Monocytes % 7.8 %; Neutrophils # 4.4 K/mcL (1.6-8.9); Nucleated Red Blood Cells 0.3 /100 WBC (0); Platelet Count 172 K/mcL (140-400); Red Blood Count 2.61 M/mcL (4.19-5.50); Segmented Neutrophils % 64.3 %; White Blood Count 6.9 K/mcL (4.3-11.1)
[2019-04-11 06:57] LABS: BUN/Creatinine Ratio 26 (6-26); Blood Urea Nitrogen 24 mg/dL (8-23); Calcium 8.2 mg/dL (8.6-10.3); Carbon Dioxide 26 mEq/L (23-29); Chloride 107 mEq/L (98-107); Glucose 96 mg/dL (70-105); Osmolality,Calculated 296 (280-300); Sodium 141 mEq/L (136-145); eGFR For African Americans > 60 (> 60); eGFR For Non-African Americans > 60 (> 60)
[2019-04-11] MEDS ORDERED: Tetracaine/Benzocaine/Butamben 1 SPRAY AEROSOL MM ONE (08:24)
[2019-04-11] MEDS ORDERED: Propofol 500 MG/50 ML INFUS..BTL ONE (09:10)
[2019-04-11] MEDS: 0.9 % Sodium Chloride 1,000 ML IVC SCH (11:02)
[2019-04-11] MEDS: Finasteride 5 MG TABLET PO SCH (11:02)
[2019-04-11] MEDS: Pantoprazole 40 MG VIAL IVP SCH (11:02)
[2019-04-11] MEDS ORDERED: *HR* Heparin 5,000 UNIT/ML VIAL IVP PRN ×2 (13:32)
[2019-04-11] MEDS ORDERED: *HR* Heparin 5,000 UNIT/ML VIAL IVP ONE (13:32)
[2019-04-11 15:11] LABS: Hematocrit 25.9 % (37.5-50.1); Hemoglobin 8.5 g/dL (12.9-16.9)
[2019-04-11 15:16] LABS: Heparin anti-factor XA UFH 0.01 IU/mL (0.30-0.70); INR 1.1; Prothrombin Time 12.9 Seconds (9.4-12.1)
[2019-04-11] MEDS: Heparin 25,000 UNIT/250 ML D5W 25,000 UNIT/250 ML IV.SOLN IVC SCH (15:57)
[2019-04-11 21:27] LABS: Hemoglobin 8.1 g/dL (12.9-16.9)
[2019-04-12 01:16] LABS: Basophils % 0.4 %; Eosinophils # 0.3 K/mcL (0.0-0.6); Eosinophils % 4.1 %; Hematocrit 24.5 % (37.5-50.1); Hemoglobin 8.1 g/dL (12.9-16.9); Immature Granulocytes % 0.6 % (0-4); Lymphocytes # 1.8 K/mcL (0.6-4.6); Lymphocytes % 25.8 %; Mean Corpuscular HGB Conc 33.1 g/dL (31.6-35.5); Mean Corpuscular Hemoglobin 29.3 pg (28.0-33.3); Mean Corpuscular Volume 88.8 fL (83.0-100.0); Mean Platelet Volume 10.7 fL (9.4-12.4); Monocytes # 0.6 K/mcL (0.0-1.3); Monocytes % 8.2 %; Neutrophils # 4.2 K/mcL (1.6-8.9); Platelet Count 184 K/mcL (140-400); Red Blood Count 2.76 M/mcL (4.19-5.50); Red Cell Distribution Width 15.2 % (11.5-14.5); Segmented Neutrophils % 60.9 %; White Blood Count 6.9 K/mcL (4.3-11.1)
[2019-04-12 01:29] LABS: BUN/Creatinine Ratio 18 (6-26); Blood Urea Nitrogen 20 mg/dL (8-23); Calcium 8.4 mg/dL (8.6-10.3); Carbon Dioxide 27 mEq/L (23-29); Chloride 110 mEq/L (98-107); Glucose 128 mg/dL (70-105); Osmolality,Calculated 294 (280-300); Potassium 4.1 mEq/L (3.5-5.1); Sodium 140 mEq/L (136-145); eGFR For African Americans > 60 (> 60); eGFR For Non-African Americans > 60 (> 60)
[2019-04-12] MEDS: Finasteride 5 MG TABLET PO SCH (08:49)
[2019-04-12] MEDS: Pantoprazole 40 MG VIAL IVP SCH (08:49)
[2019-04-12] MEDS: Heparin 25,000 UNIT/250 ML D5W 25,000 UNIT/250 ML IV.SOLN IVC SCH (11:11)
[2019-04-12] MEDS ORDERED: Isovue-370 500 ML BOTTLE IVP ONE (12:46)
[2019-04-12 14:08] LABS: Hematocrit 26.1 % (37.5-50.1); Hemoglobin 8.5 g/dL (12.9-16.9)
[2019-04-13 01:35] LABS: Basophils % 0.5 %; Eosinophils # 0.3 K/mcL (0.0-0.6); Hematocrit 26.4 % (37.5-50.1); Hemoglobin 8.8 g/dL (12.9-16.9); Immature Granulocytes % 0.5 % (0-4); Lymphocytes # 1.4 K/mcL (0.6-4.6); Lymphocytes % 21.9 %; Mean Corpuscular HGB Conc 33.3 g/dL (31.6-35.5); Mean Corpuscular Hemoglobin 30.3 pg (28.0-33.3); Mean Platelet Volume 11.1 fL (9.4-12.4); Monocytes # 0.5 K/mcL (0.0-1.3); Neutrophils # 4.3 K/mcL (1.6-8.9); Platelet Count 194 K/mcL (140-400); Segmented Neutrophils % 65.1 %; White Blood Count 6.5 K/mcL (4.3-11.1)
[2019-04-13 01:56] LABS: BUN/Creatinine Ratio 14 (6-26); Blood Urea Nitrogen 18 mg/dL (8-23); Calcium 8.6 mg/dL (8.6-10.3); Carbon Dioxide 29 mEq/L (23-29); Chloride 105 mEq/L (98-107); Glucose 99 mg/dL (70-105); Osmolality,Calculated 296 (280-300); Potassium 4.2 mEq/L (3.5-5.1); Sodium 142 mEq/L (136-145); eGFR For African Americans > 60 (> 60); eGFR For Non-African Americans 55 (> 60)
[2019-04-13] MEDS: 0.9 % Sodium Chloride 1,000 ML IVC SCH (02:12)
[2019-04-13] MEDS: Heparin 25,000 UNIT/250 ML D5W 25,000 UNIT/250 ML IV.SOLN IVC SCH ×2 (04:40→23:51)
[2019-04-13] MEDS: Pantoprazole 40 MG VIAL IVP SCH (07:36)
[2019-04-13] MEDS: Finasteride 5 MG TABLET PO SCH (07:36)
[2019-04-13 09:27] LABS: INR 1.1; Prothrombin Time 12.3 Seconds (9.4-12.1)
[2019-04-13 10:08] LABS: Ferritin 9 ng/mL (20-250)
[2019-04-13 13:11] LABS: Folate 15.6 ng/mL (3.0-16.0)
[2019-04-13] MEDS: Sodium Ferric Gluconat/Sucrose 125 MG in 0.9 % Sodium Chloride 100 ML IVPB SCH (16:20)
[2019-04-13] MEDS: *HR* Warfarin 3 MG TABLET PO SCH ×2 (16:22→16:35)
[2019-04-13] MEDS ORDERED: SODIUM CHLORIDE/NAHCO3/KCL/PEG 4,000 ML SOLN.RECON PO ONE (17:00)
[2019-04-13] MEDS ORDERED: Warfarin perPT PO PRN (18:00)
[2019-04-14 02:28] LABS: Iron < 10 mcg/dL (65-175); Transferrin 229 mg/dL (203-362)
[2019-04-14 03:16] LABS: Hematocrit 26.4 % (37.5-50.1); Hemoglobin 8.3 g/dL (12.9-16.9); Mean Corpuscular HGB Conc 31.4 g/dL (31.6-35.5); Mean Corpuscular Hemoglobin 29.2 pg (28.0-33.3); Mean Platelet Volume 11.2 fL (9.4-12.4); Platelet Count 178 K/mcL (140-400); Red Blood Count 2.84 M/mcL (4.19-5.50); Red Cell Distribution Width 14.6 % (11.5-14.5); White Blood Count 6.7 K/mcL (4.3-11.1)
[2019-04-14 03:23] LABS: Prothrombin Time 11.9 Seconds (9.4-12.1)
[2019-04-14 03:48] LABS: BUN/Creatinine Ratio 13 (6-26); Blood Urea Nitrogen 13 mg/dL (8-23); Calcium 8.9 mg/dL (8.6-10.3); Carbon Dioxide 27 mEq/L (23-29); Chloride 108 mEq/L (98-107); Glucose 87 mg/dL (70-105); Osmolality,Calculated 293 (280-300); Sodium 142 mEq/L (136-145); eGFR For African Americans > 60 (> 60); eGFR For Non-African Americans > 60 (> 60)
[2019-04-14] MEDS ORDERED: Furosemide 20 MG TABLET PO SCH (09:00)
[2019-04-14] MEDS: Sodium Ferric Gluconat/Sucrose 125 MG in 0.9 % Sodium Chloride 100 ML IVPB SCH (11:05)
[2019-04-14] MEDS: Pantoprazole 40 MG VIAL IVP SCH (11:07)
[2019-04-14] MEDS ORDERED: Propofol 500 MG/50 ML INFUS..BTL ONE (13:56)
[2019-04-14] MEDS: Heparin 25,000 UNIT/250 ML D5W 25,000 UNIT/250 ML IV.SOLN IVC SCH (16:37)
[2019-04-14] MEDS: Loratadine 10 MG TABLET PO SCH (16:40)
[2019-04-14] MEDS: Finasteride 5 MG TABLET PO SCH (16:40)
[2019-04-14] MEDS ORDERED: Warfarin perPT PO PRN (18:00)
[2019-04-14] MEDS ORDERED: *HR* Warfarin 3 MG TABLET PO ONE (18:00)
[2019-04-15 05:37] LABS: Hematocrit 24.1 % (37.5-50.1); Hemoglobin 7.7 g/dL (12.9-16.9); Mean Corpuscular Hemoglobin 28.8 pg (28.0-33.3); Mean Corpuscular Volume 90.3 fL (83.0-100.0); Mean Platelet Volume 11.2 fL (9.4-12.4); Platelet Count 187 K/mcL (140-400); Red Blood Count 2.67 M/mcL (4.19-5.50); Red Cell Distribution Width 14.7 % (11.5-14.5); White Blood Count 8.9 K/mcL (4.3-11.1)
[2019-04-15 05:40] LABS: INR 1.1; Prothrombin Time 12.6 Seconds (9.4-12.1)
[2019-04-15] MEDS: Heparin 25,000 UNIT/250 ML D5W 25,000 UNIT/250 ML IV.SOLN IVC SCH (08:49)
[2019-04-15] MEDS: Loratadine 10 MG TABLET PO SCH (09:19)
[2019-04-15] MEDS: Finasteride 5 MG TABLET PO SCH (09:21)
[2019-04-15] MEDS: Sodium Ferric Gluconat/Sucrose 125 MG in 0.9 % Sodium Chloride 100 ML IVPB SCH (11:38)
[2019-04-15] MEDS: Pantoprazole 40 MG VIAL IVP SCH (11:39)
[2019-04-15] MEDS ORDERED: *HR* Warfarin 3 MG TABLET PO ONE (18:00)
[2019-04-16] MEDS: Heparin 25,000 UNIT/250 ML D5W 25,000 UNIT/250 ML IV.SOLN IVC SCH ×2 (02:15→19:20)
[2019-04-16] MEDS: Finasteride 5 MG TABLET PO SCH (08:06)
[2019-04-16] MEDS: Furosemide 20 MG TABLET PO SCH (08:06)
[2019-04-16] MEDS: Loratadine 10 MG TABLET PO SCH (08:06)
[2019-04-16] MEDS: Sodium Ferric Gluconat/Sucrose 125 MG in 0.9 % Sodium Chloride 100 ML IVPB SCH (08:06)
[2019-04-16] MEDS: Pantoprazole 40 MG VIAL IVP SCH (08:07)
[2019-04-16 09:26] LABS: INR 1.2; Prothrombin Time 13.2 Seconds (9.4-12.1)
[2019-04-16 09:29] LABS: Hematocrit 25.5 % (37.5-50.1); Hemoglobin 7.7 g/dL (12.9-16.9); Mean Corpuscular HGB Conc 30.2 g/dL (31.6-35.5); Mean Corpuscular Hemoglobin 28.8 pg (28.0-33.3); Mean Corpuscular Volume 95.5 fL (83.0-100.0); Mean Platelet Volume 11.3 fL (9.4-12.4); Platelet Count 191 K/mcL (140-400); Red Blood Count 2.67 M/mcL (4.19-5.50); Red Cell Distribution Width 15.3 % (11.5-14.5); White Blood Count 7.9 K/mcL (4.3-11.1)
[2019-04-16 09:42] LABS: BUN/Creatinine Ratio 11 (6-26); Blood Urea Nitrogen 13 mg/dL (8-23); Calcium 8.6 mg/dL (8.6-10.3); Carbon Dioxide 28 mEq/L (23-29); Chloride 106 mEq/L (98-107); Glucose 119 mg/dL (70-105); Osmolality,Calculated 291 (280-300); Potassium 4.2 mEq/L (3.5-5.1); Sodium 140 mEq/L (136-145); eGFR For African Americans > 60 (> 60); eGFR For Non-African Americans > 60 (> 60)
[2019-04-16] MEDS ORDERED: *HR* Warfarin 3 MG TABLET PO ONE (18:00)
[2019-04-17 03:12] LABS: Hematocrit 25.2 % (37.5-50.1); Hemoglobin 7.5 g/dL (12.9-16.9); Mean Corpuscular HGB Conc 29.8 g/dL (31.6-35.5); Mean Corpuscular Hemoglobin 28.7 pg (28.0-33.3); Mean Corpuscular Volume 96.6 fL (83.0-100.0); Mean Platelet Volume 11.4 fL (9.4-12.4); Platelet Count 200 K/mcL (140-400); Red Blood Count 2.61 M/mcL (4.19-5.50); Red Cell Distribution Width 15.4 % (11.5-14.5); White Blood Count 8.2 K/mcL (4.3-11.1)
[2019-04-17 03:18] LABS: INR 1.2; Prothrombin Time 13.5 Seconds (9.4-12.1)
[2019-04-17] MEDS: Pantoprazole 40 MG VIAL IVP SCH (08:39)
[2019-04-17] MEDS: Finasteride 5 MG TABLET PO SCH (08:39)
[2019-04-17] MEDS: Furosemide 20 MG TABLET PO SCH (08:39)
[2019-04-17] MEDS: Loratadine 10 MG TABLET PO SCH (08:39)
[2019-04-17] MEDS: Sodium Ferric Gluconat/Sucrose 125 MG in 0.9 % Sodium Chloride 100 ML IVPB SCH (08:39)
[2019-04-17] MEDS: Heparin 25,000 UNIT/250 ML D5W 25,000 UNIT/250 ML IV.SOLN IVC SCH (11:54)
[2019-04-17] MEDS ORDERED: *HR* Warfarin 7.5 MG TABLET PO ONE (18:00)
[2019-04-18 03:44] LABS: Hematocrit 26.4 % (37.5-50.1); Hemoglobin 8.2 g/dL (12.9-16.9); Immature Platelets 5.5 % (1.1-6.1); Mean Corpuscular HGB Conc 31.1 g/dL (31.6-35.5); Mean Corpuscular Hemoglobin 29.1 pg (28.0-33.3); Mean Corpuscular Volume 93.6 fL (83.0-100.0); Mean Platelet Volume 11.1 fL (9.4-12.4); Red Blood Count 2.82 M/mcL (4.19-5.50); Red Cell Distribution Width 16.5 % (11.5-14.5); White Blood Count 7.1 K/mcL (4.3-11.1)
[2019-04-18 03:51] LABS: INR 1.3; Prothrombin Time 14.4 Seconds (9.4-12.1)
[2019-04-18] MEDS: Heparin 25,000 UNIT/250 ML D5W 25,000 UNIT/250 ML IV.SOLN IVC SCH (05:31)
[2019-04-18] MEDS: Pantoprazole 40 MG VIAL IVP SCH (08:07)
[2019-04-18] MEDS: Finasteride 5 MG TABLET PO SCH (08:09)
[2019-04-18] MEDS: Furosemide 20 MG TABLET PO SCH (08:10)
[2019-04-18] MEDS: Loratadine 10 MG TABLET PO SCH (08:10)
[2019-04-18] MEDS: Sodium Ferric Gluconat/Sucrose 125 MG in 0.9 % Sodium Chloride 100 ML IVPB SCH (08:12)
[2019-04-18] MEDS ORDERED: *HR* Enoxaparin 100 MG/ML SYRINGE SQ SCH (12:00)
[2019-04-18 15:18] VITALS: BP 126/84
== END 2019-04-18 16:50 | disposition home or self-care (01) | DRG 378 ==
LOC: 2NNU 16:34 → EMEROOARM 16:34 → SUATTDRO 18:11 → 2NNU 20:00 → SUATTDRO 04-11 13:41 → CDU 04-14 13:46 → 3NENU 04-14 19:03
PROVIDERS: ADMIT Internal Medicine; ATTEND Internal Medicine
PROC: ENDOCCB (2019-04-14 13:45)

== ENCOUNTER 2020-08-23 06:03 | Inpatient (IN) ==
[~2020-08-23 06:03] MED LIST: Acetaminophen IV 1,000 MG/100 ML BAG IVPB ONE; Famotidine 20 MG/2 ML VIAL IVP ONE
[2020-08-23] MEDS ORDERED: Vancomycin 1,500 MG/265 ML IV.SOLN IVPB ONE (06:33)
[2020-08-23] MEDS ORDERED: CeFAZolin Syr 2,000MG/20 ML 2,000 MG/20 ML SYRINGE IVPB ONE (06:33)
[2020-08-23] MEDS ORDERED: Ringers Solution, Lactated 1,000 ML IVC ONE (06:45)
[2020-08-23] MEDS ORDERED: Heparin 1,000 UNITS/500 mL 1,500 ML ONE (07:13)
[2020-08-23] MEDS ORDERED: Ondansetron 4 MG/2 ML VIAL ONE (07:14)
[2020-08-23] MEDS ORDERED: *HR* Propofol 200 MG/20 ML VIAL IVP ONE (07:14)
[2020-08-23] MEDS ORDERED: Lidocaine HCL 4 ML Topical Solution (Laryng-O-Jet Kit Sterile Pak) TP ONE (07:14)
[2020-08-23] MEDS ORDERED: Lidocaine -MPF 2% 2 ML VIAL ONE (07:14)
[2020-08-23] MEDS ORDERED: *HR* Rocuronium Bromide 50 MG/5 ML VIAL ONE ×2 (07:14→09:20)
[2020-08-23] MEDS ORDERED: *HR* FentaNYL (PF) 100 MCG/2 ML VIAL ONE ×2 (07:14→09:22)
[2020-08-23] MEDS ORDERED: Vancomycin 1,000 MG VIAL ONE (07:16)
[2020-08-23] MEDS ORDERED: Isovue-300 50ML VIAL ONE ×2 (07:16→08:35)
[2020-08-23] MEDS ORDERED: *HR* FentaNYL (PF) 100 MCG/2 ML VIAL IVP PRN (07:24)
[2020-08-23] MEDS ORDERED: Nitroglycerin 0.4 MG TAB.SUBL SL PRN (07:24)
[2020-08-23] MEDS ORDERED: Heparin 1,000 UNITS/500 mL 500 ML ONE ×2 (07:24→11:09)
[2020-08-23] MEDS ORDERED: Naloxone 0.4 MG/ML INJ IVP PRN ×2 (07:24→18:26)
[2020-08-23] MEDS ORDERED: Albuterol 2.5 MG/3 ML NEBULIZER IH PRN (07:24)
[2020-08-23] MEDS ORDERED: Ondansetron 4 MG/2 ML VIAL IVP PRN (07:24)
[2020-08-23] MEDS ORDERED: *HR* HYDROmorphone (PF) 1 MG/ML SYRINGE IVP PRN (07:24)
[2020-08-23] MEDS ORDERED: *HR* Phenylephrine 10 MG/ML VIAL ONE (07:27)
[2020-08-23] MEDS ORDERED: *HR* Vasopressin 20 UNIT/ML VIAL ONE (07:30)
[2020-08-23] MEDS ORDERED: Albumin Human 5% 12.5 GM/250 ML IV.SOLN ONE (07:30)
[2020-08-23] MEDS ORDERED: Vancomycin 1,000 MG, Sodium Chloride IRRigation 1,000 ML IR ONE (07:45)
[2020-08-23] MEDS ORDERED: *HR* Midazolam HCl 2 MG/2 ML VIAL ONE (07:57)
[2020-08-23] MEDS ORDERED: *HR* Etomidate 40 MG/20 ML VIAL IVP ONE (08:09)
[2020-08-23] MEDS ORDERED: EPHEDrine 50 MG/ML VIAL ONE (08:37)
[2020-08-23] MEDS ORDERED: *HR* Heparin 5,000 UNIT/ML VIAL ONE ×2 (09:54→10:50)
[2020-08-23] MEDS ORDERED: Sugammadex Sodium 200 MG/2 ML VIAL IV ONE (11:45)
[2020-08-23] MEDS ORDERED: ceFAZolin 2,000 MG in 0.9 % Sodium Chloride 100 ML IVP STA (16:49)
[2020-08-23] MEDS ORDERED: *HR* Labetalol 20 MG/4 ML SYRINGE IVP PRN (18:26)
[2020-08-23] MEDS ORDERED: *HR* OxyCODONE Immed Rel 5 MG TABLET PO PRN (18:26)
[2020-08-23] MEDS ORDERED: 0.9 % Sodium Chloride 1,000 ML IVC SCH (18:26)
[2020-08-23] MEDS ORDERED: Acetaminophen 325 MG TABLET PO PRN (18:26)
[2020-08-23] MEDS ORDERED: *HR* HYDROcodone/Acet 5/325 mg TABLET PO PRN (18:26)
[2020-08-23] MEDS: *HR* Metoprolol 5 MG/5 ML VIAL IVP SCH (19:34)
[2020-08-23] MEDS ORDERED: lisinopriL 20 MG TABLET PO SCH (21:00)
[2020-08-24] MEDS: *HR* Metoprolol 5 MG/5 ML VIAL IVP SCH ×2 (01:10→05:43)
[2020-08-24] MEDS: CeFAZolin 2 GM/120 ML BAG IVPB SCH ×2 (01:13→08:16)
[2020-08-24 04:57] LABS: Basophils % 0.2 %; Eosinophils % 0.1 %; Hemoglobin 12.1 g/dL (12.9-16.9); Immature Granulocytes % 0.5 % (0-4); Lymphocytes # 1.1 K/mcL (0.6-4.6); Lymphocytes % 8.5 %; Mean Corpuscular HGB Conc 32.7 g/dL (31.6-35.5); Mean Corpuscular Hemoglobin 31.8 pg (28.0-33.3); Mean Corpuscular Volume 97.1 fL (83.0-100.0); Mean Platelet Volume 11.2 fL (9.4-12.4); Monocytes # 0.9 K/mcL (0.0-1.3); Monocytes % 6.8 %; Neutrophils # 10.6 K/mcL (1.6-8.9); Platelet Count 156 K/mcL (140-400); Red Blood Count 3.81 M/mcL (4.19-5.50); Red Cell Distribution Width 13.2 % (11.5-14.5); Segmented Neutrophils % 83.9 %; White Blood Count 12.6 K/mcL (4.3-11.1)
[2020-08-24 05:07] LABS: BUN/Creatinine Ratio 22 (6-26); Blood Urea Nitrogen 22 mg/dL (8-23); Calcium 8.5 mg/dL (8.6-10.3); Carbon Dioxide 31 mEq/L (23-29); Chloride 100 mEq/L (98-107); Glucose 116 mg/dL (70-105); Osmolality,Calculated 288 (280-300); Sodium 137 mEq/L (136-145); eGFR For African Americans > 60 (> 60); eGFR For Non-African Americans > 60 (> 60)
[2020-08-24] MEDS ORDERED: amLODIPine 5 MG TABLET PO SCH (09:00)
[2020-08-24] MEDS ORDERED: Furosemide 40 MG TABLET PO SCH (09:00)
[2020-08-24] MEDS ORDERED: Finasteride 5 MG TABLET PO SCH (09:00)
[2020-08-24] MEDS ORDERED: Loratadine 10 MG TABLET PO SCH (09:00)
[2020-08-24] MEDS ORDERED: Metoprolol XL (24 HR) Succ 25 MG TAB.ER.24H PO SCH (09:00)
[2020-08-24] MEDS ORDERED: hydroCHLOROthiazide 25 MG TABLET PO SCH (09:00)
[2020-08-24 11:22] VITALS: BP 101/62
[2020-08-24] MEDS ORDERED: *HR* Heparin 5,000 UNIT/ML VIAL SQ SCH ×2 (18:00)
== END 2020-08-24 13:39 | disposition home or self-care (01) | DRG 269 ==
LOC: SAMDAY 06:03 → 2NNU 13:13
PROVIDERS: ADMIT Surgery; ATTEND Surgery